=== PATIENT | female | born 1975 | race Caucasian/White ===

== ENCOUNTER 2022-02-02 13:22 | Emergency (ER) | payer OTHER ==
[~2022-02-02] VITALS: Ht 182.9 cm; Wt 153.8 kg
[2022-02-02 13:30] VITALS: BP 137/78
--- NOTE | 2022-02-02 14:29 | NUR ---
46 Y/O FEMALE BIB SELF REFERRED FROM [facility], PER PT C/O PAIN, REDNESS AND SWELLING. BRUISE ON THE LEFT BIG TOE, PER PT SHE HAS BEEN HAVING BRUISING UNDER HER CALLUS FOR YEARS WITH NEW ONSET OF REDNESS AND SWELLING ON THE AREA, CMS INTACT, BENCH [employer]SEM[employer] LESS THAN 3 SECONDS. NKA PMH: DM2
[2022-02-02] MEDS ORDERED: LIDOCAINE MPF 1% 5 ML ONE (15:00)
[2022-02-02] MEDS ORDERED: LIDOCAINE 1% 500 MG/ 50 ML VIAL INJ ONE (15:00)
--- NOTE | 2022-02-02 15:00 | NUR ---
DR MARES AT BEDSIDE FOR PROCEDURE
[2022-02-02] MEDS ORDERED: SULF-58 PO (15:19)
--- NOTE | 2022-02-02 15:28 | NUR ---
Patient discharged with v/s stable. Written and verbal after care instructions ABOUT SKIN ABSCESS AND CELLULITIS given and explained. Patient alert, oriented and verbalized understanding of instructions. Ambulatory with steady gait. All questions addressed prior to discharge. ID band removed. Patient advised to follow up with PMD. Rx of BACTRIM 400-80 given. Patient educated on indication of medication including possible reaction and side effects. Opportunity to ask questions provided and answered.
== END 2022-02-02 15:28 | disposition home or self-care (01) ==
LOC: MED 13:22
DX: L03.032 Cellulitis of left toe (principal); E11.9 Type 2 diabetes mellitus without complications; Z79.4 Long term (current) use of insulin; Z79.899 Other long term (current) drug therapy; Z98.890 Other specified postprocedural states
CPT/HCPCS: 10060; 81002; 81025; 99283; J2001